=== PATIENT | female | born 1995 | race Caucasian/White ===

== ENCOUNTER 2021-02-22 23:28 | Inpatient (IN) | payer SELFPAY ==
[2021-02-23 00:09] LABS: Urine Blood Trace-intact (Negative); Urine Glucose Negative (Negative); Urine Protein Trace (Negative); Urine Specific Gravity 1.025 (1.005-1.030)
[2021-02-23] MEDS ORDERED: Levofloxacin500mg IV 500 MG/100 ML BAG IV ONE (02:21)
[2021-02-23] MEDS ORDERED: ACETAMINOPHEN 500 MG TAB ONE (02:21)
[2021-02-23 02:52] LABS: Absolute Lymphocytes (CBC) 1.5 K/uL (0.7-4.9); Basophils % 0.1 % (0-1.3); Hematocrit 41.4 % (36.0-45.0); Lymphocytes % 15.9 % (15.3-44.8); RBC Red Blood Cell Count 4.56 M/uL (3.86-4.86)
[2021-02-23 02:57] LABS: Albumin 4.3 g/dL (3.4-5.0); Bilirubin Direct 0.2 mg/dL (0-0.2); Bilirubin Total 0.7 mg/dL (0.2-1.0); Potassium 3.9 mmol/L (3.5-5.1); Protein, Total 8.1 g/dL (6.4-8.2)
--- NOTE | 2021-02-23 03:32 | ER ---
Nurse's Notes [facility] Name: Jodee Okeefe Age: 25 yrs Sex: Female : 1995 Arrival Date: 02/22/2021 Time: 23:32 Bed 23 Private MD: Diagnosis: Pyelonephritis acute-Solitary right kidney;Nausea with vomiting, unspecified Presentation: 02/22 23:42 Chief complaint: Patient states: RT FLANK PAIN THAT RADIATES TO RT GROIN SINCE 1300, HX sj1 OF KIDNEY STONES, REPORTS NAUSEA WITHOUT VOMITING. Coronavirus screen: Vaccine status: Patient reports being unvaccinated. Ebola Screen: No symptoms or risks identified at this time. Initial Sepsis Screen: Does the patient meet any 2 criteria? Temp <36.0*C (96.8*F)) or > 38.3*C (100.9*F). No. Patient's initial sepsis screen is negative. Does the patient have a suspected source of infection? No. Patient's initial sepsis screen is negative. Risk Assessment: Do you want to hurt yourself or someone else? Patient reports no desire to harm self or others. Onset of symptoms was February 22, 2021. 23:42 Method Of Arrival: Ambulatory sj1 23:42 Acuity: PAT 3 sj1 Triage Assessment: 23:47 General: Appears in no apparent distress. Behavior is calm, cooperative, appropriate sj1 for age. Pain: Complains of pain in RT FLANK Pain radiates to RT GROIN Quality of pain is described as aching, sharp, shooting, Pain began suddenly. GI: Reports. 23:50 EENT: No deficits noted. Neuro: No deficits noted. Cardiovascular: No deficits noted. sj1 Respiratory: No deficits noted. GI: Reports nausea. : No deficits noted. Derm: No deficits noted. Musculoskeletal: No deficits noted. 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 - Social history:: Smoking status: Patient denies any tobacco usage or history of. Patient/guardian denies using alcohol, street drugs. Screenin:49 Abuse screen: Denies threats or abuse. Denies injuries from another. Nutritional sj1 screening: No deficits noted. Tuberculosis screening: No symptoms or risk factors identified. Fall Risk None identified. Assessment: 02/23 00:30 Pain: Complains of pain in Right lower quadrant that radiates to back. dc2 00:30 Neuro: No deficits noted. Cardiovascular: No deficits noted. Respiratory: No deficits dc2 noted. Breath sounds are clear bilaterally. GI: No deficits noted. Abdomen is non-distended, obese. : Reports urinary frequency, since 2 days ago. Denies dysuria. Derm: No deficits noted. Musculoskeletal: No deficits noted. Vital Signs: 02/22 23:42 BP 110 / 81; Pulse 98; Resp 16 S; Temp 100.7; Pulse Ox 99% on R/A; Weight 90.72 kg (R); sj1 Height 5 ft. 4 in. (162.56 cm) (R); Pain 10/10; 02/23 00:45 BP 106 / 65; Pulse 89; Resp 18; Pulse Ox 100% ; Pain 9/10; dc2 01:30 BP 106 / 71; Pulse 91; Resp 18; Pulse Ox 100% ; Pain 5/10; dc2 02:30 Temp 99.1; dc2 03:30 BP 106 / 68; Pulse 99; Resp 17; Temp 99.1(O); Pulse Ox 100% ; Pain 0/10; dc2 04:30 BP 98 / 69; Pulse 57; Resp 7; Pulse Ox 100% ; Pain 0/10; dc2 05:30 BP 93 / 64; Pulse 81; Resp 17; Pulse Ox 100% ; Pain 0/10; dc2 06:30 BP 98 / 64; Pulse 89; Resp 17; Pulse Ox 100% ; Pain 0/10; dc2 08:08 BP 102 / 72; Pulse 88; Resp 16; Temp 98.9; Pulse Ox 99% ; ch5 02/22 23:42 Body Mass Index 34.33 (90.72 kg, 162.56 cm) sj1 ED Course: 02/22 23:32 Patient arrived in ED. ja2 23:45 Triage completed. sj1 23:49 Patient has correct armband on for positive identification. sj1 23:49 Arm band placed on. dc2 02/23 00:25 Joselito Giordano MD is Attending Physician. [facility] 00:34 Aracely Mathew RN is Primary Nurse. dc2 01:04 Inserted saline lock: 20 gauge in right antecubital area, using aseptic technique. oe Blood collected. 01:36 Basic Metabolic Panel Sent. dc2 01:36 CBC with Diff Sent. dc2 01:36 Hepatic Function Sent. dc2 01:36 Lipase Sent. dc2 01:[address] via stretcher. dc2 02:13 CT Stone Protocol In Process Unspecified. EDMS 02:44 IV Flushed Converted IV to saline lock on right antecubital area dc2 02:44 No provider procedures requiring assistance completed. dc2 03:30 Wilton Elias is Hospitalizing Provider. [facility] 04:28 Admitting physician to see patient. dc2 04:50 Awaiting bed assignment, Awaiting lab results, Awaiting: Pt instructed that we are dc2 waiting on covid results so bed assignment can be made. Pt verbalizes understanding > Voices no needs at present, call light within reach, In nad. 05:00 Appears to be sleeping. dc2 05:13 SARS-COV-2 RT PCR Sent. dc2 06:30 Appears to be sleeping. Awaiting bed assignment. dc2 06:30 Patient has correct armband on for positive identification. Bed in low position. Call dc2 light in reach. Side rails up X 1. 06:30 disease case manager rn on. Pulse ox on. NIBP on. Pt sleeping with eyes closed, resp even and dc2 unlabored. In nad. Not wakened at this time. 07:04 Report given to YUNIER Galvez. dc2 Administered Medications: 01:36 Drug: NS 0.9% 1000 ml Route: IV; Rate: 1000 ml; Infused Over: 1 hrs; Site: right dc2 antecubital; Delivery: Primary tubing; 45 Follow up: IV Status: Completed infusion; IV Intake: 1000ml dc2 02:00 Drug: Tylenol 1000 mg Route: PO; dc2 02:30 Follow up: Response: Temperature is decreased dc2 02:00 Drug: LevaQUIN (levofloxacin) 500 mg Volume: 100 ml; Route: IVPB; Rate: 100 ml/hr; dc2 Infused Over: 60 mins; Site: right antecubital; Delivery: Primary tubing; 03:29 Follow up: IV Status: Completed infusion; IV Intake: 100ml dc2 Intake: 01:45 IV: 1000ml; Total: 1000ml. dc2 03:29 IV: 100ml; Total: 1100ml. dc2 Outcome: 02:45 Condition: stable dc2 03:31 Decision to Hospitalize by Provider. [facility] 08:08 Admitted to Med/surg via wheelchair. [facility] 08:08 Condition: stable 08:08 Instructed on the need for admit. 08:19 Patient left the ED. [facility] Signatures: Dispatcher [employer] [place] Dimitrios Keller Maurice, MD MD [facility] Colin Grover RN RN 5 Radha Car Denise, RN RN dc2 Amanda Veloz RN RN sj1 Corrections: (The following items were deleted from the chart) 02/22 23:49 23:45 [facility]x: [facility]; [facility] 23:49 23:45 PMHx: HERNIA; 1 1 23:49 23:45 PMHx: C -SECTION X 2; 1 1 02/23 02:41 02:40 LevaQUIN (levofloxacin) 500 mg 100 ml IVPB at 100 ml/hr in right antecubital over dc2 60 mins 100 ml via Primary tubing dc2 03:57 03:57 CORONAVIRUS+ drawn and sent. dc2 [facility]
--- NOTE | 2021-02-23 03:32 | EDPHYS ---
Physician Documentation [facility] Name: Jodee Okeefe Age: 25 yrs Sex: Female : 1995 Arrival Date: 02/22/2021 Time: 23:32 Bed 23 Private MD: ED Physician Joselito Giordano HPI: 02/23 01:20 This 25 yrs old Female presents to ER via Ambulatory with complaints of PAIN mh7 THE RIGHT SIDE, Nausea. 01:20 The patient complains of pain in the right flank. mh7 01:20 The pain radiates to the abdomen. Onset: The symptoms/episode began/occurred yesterday. mh7 Modifying factors: The symptoms are alleviated by nothing. the symptoms are aggravated by nothing. Associated signs and symptoms: Pertinent positives: urinary frequency, nausea, Pertinent negatives: diarrhea, dizziness, dysuria, fever, headache, hematuria, pain radiating to the lower extremities, vomiting. Severity of pain: At its worst the pain was moderate yesterday, in the emergency department the pain has improved moderately. 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 - Social history:: Smoking status: Patient denies any tobacco usage or history of. Patient/guardian denies using alcohol, street drugs. ROS: 02/23 01:20 Constitutional: Negative for fever, chills, and weight loss, Eyes: Negative for injury, mh7 pain, redness, and discharge, ENT: Negative for injury, pain, and discharge, Neck: Negative for injury, pain, and swelling, Cardiovascular: Negative for chest pain, palpitations, and edema, Respiratory: Negative for shortness of breath, cough, wheezing, and pleuritic chest pain, MS/Extremity: Negative for injury and deformity, Skin: Negative for injury, rash, and discoloration, Neuro: Negative for headache, weakness, numbness, tingling, and seizure, Psych: Negative for depression, anxiety, suicide ideation, homicidal ideation, and hallucinations, Allergy/Immunology: Negative for hives, rash, and allergies, Endocrine: Negative for neck swelling, polydipsia, polyuria, polyphagia, and marked weight changes, Hematologic/Lymphatic: Negative for swollen nodes, abnormal bleeding, and unusual bruising. Exam: 01:20 Constitutional: This is a well developed, well nourished patient who is awake, alert, mh7 and in no acute distress. Head/Face: Normocephalic, atraumatic. Eyes: Pupils equal round and reactive to light, extra-ocular motions intact. Lids and lashes normal. Conjunctiva and sclera are non-icteric and not injected. Cornea within normal limits. Periorbital areas with no swelling, redness, or edema. Neck: Trachea midline, no thyromegaly or masses palpated, and no cervical lymphadenopathy. Supple, full range of motion without nuchal rigidity, or vertebral point tenderness. No Meningismus. Chest/axilla: Normal chest wall appearance and motion. Nontender with no deformity. No lesions are appreciated. Cardiovascular: Regular rate and rhythm with a normal S1 and S2. No gallops, murmurs, or rubs. Normal PMI, no JVD. No pulse deficits. Respiratory: Lungs have equal breath sounds bilaterally, clear to auscultation and percussion. No rales, rhonchi or wheezes noted. No increased work of breathing, no retractions or nasal flaring. 01:20 Skin: Warm, dry with normal turgor. Normal color with no rashes, no lesions, and no evidence of cellulitis. MS/ Extremity: Pulses equal, no cyanosis. Neurovascular intact. Full, normal range of motion. Neuro: Awake and alert, GCS 15, oriented to person, place, time, and situation. Cranial nerves II-XII grossly intact. Motor strength 5/5 in all extremities. Sensory grossly intact. Cerebellar exam normal. Normal gait. Psych: Awake, alert, with orientation to person, place and time. Behavior, mood, and affect are within normal limits. 01:20 Abdomen/GI: Inspection: abdomen appears normal, Bowel sounds: normal, in all quadrants, Palpation: mild abdominal tenderness, in the suprapubic area and right lower quadrant, mass, is not appreciated, rebound tenderness, is not appreciated, voluntary guarding, is not appreciated, involuntary guarding, is not appreciated, no appreciated organomegaly, Rectal exam: the exam is deferred, because of patient request, Indicators: McBurney's point is not tender, Lew's sign is negative, Rovsing's sign is negative, Obturator sign is negative, Psoas sign is negative, Liver: no appreciated palpable abnormalities, Hernia: not appreciated. 01:20 Back: normal spinal alignment noted, CVA tenderness, that is mild, is noted on the right, muscle spasm, is not present. Vital Signs: 02/22 23:42 BP 110 / 81; Pulse 98; Resp 16 S; Temp 100.7; Pulse Ox 99% on R/A; Weight 90.72 kg (R); 1 Height 5 ft. 4 in. (162.56 cm) (R); Pain 10/10; 02/23 00:45 BP 106 / 65; Pulse 89; Resp 18; Pulse Ox 100% ; Pain 9/10; dc2 01:30 BP 106 / 71; Pulse 91; Resp 18; Pulse Ox 100% ; Pain 5/10; dc2 02:30 Temp 99.1; dc2 03:30 BP 106 / 68; Pulse 99; Resp 17; Temp 99.1(O); Pulse Ox 100% ; Pain 0/10; dc2 04:30 BP 98 / 69; Pulse 57; Resp 7; Pulse Ox 100% ; Pain 0/10; dc2 05:30 BP 93 / 64; Pulse 81; Resp 17; Pulse Ox 100% ; Pain 0/10; dc2 06:30 BP 98 / 64; Pulse 89; Resp 17; Pulse Ox 100% ; Pain 0/10; dc2 08:08 BP 102 / 72; Pulse 88; Resp 16; Temp 98.9; Pulse Ox 99% ; ch5 02/22 23:42 Body Mass Index 34.33 (90.72 kg, 162.56 cm) [facility] MDM: 03:29 Differential diagnosis: nephrolithiasis, pyelonephritis, UTI, diverticulitis. Data [facility] reviewed: vital signs, nurses notes, lab test result(s), CBC, electrolytes, urinalysis, UPT: negative radiologic studies, CT scan. Data interpreted: Pulse oximetry: on room air is 100 %. Interpretation: normal. Counseling: I had a detailed discussion with the patient and/or guardian regarding: the historical points, exam findings, and any diagnostic results supporting the discharge/admit diagnosis, lab results, radiology results, the need for further work-up and treatment in the hospital. Response to treatment: the patient's symptoms have mildly improved after treatment. 03:31 Patient medically screened. [facility] 02/23 00:10 Order name: Urine Dipstick-Ancillary; Complete Time: 00:30 [facility] 02/23 00:11 Order name: Urine --Ancillary (enter results); Complete Time: 00:30 [facility] 02/23 01:33 Order name: Basic Metabolic Panel; Complete Time: 03:25 [facility] 02/23 01:33 Order name: CBC with Diff; Complete Time: 03:25 [facility] 02/23 01:33 Order name: Hepatic Function; Complete Time: 03:25 [facility] 02/23 01:33 Order name: Lipase; Complete Time: 03:25 [facility] 02/23 01:33 Order name: CT Stone Protocol [facility] 02/23 01:34 Order name: Urine Microscopic Only [facility] 02/23 01:34 Order name: Urine Culture [facility] 02/23 03:57 Order name: SARS-COV-2 RT PCR [facility] 02/23 00:09 Order name: Urine Dipstick-Ancillary (obtain specimen); Complete Time: 00:09 [facility] 02/23 00:11 Order name: Urine Test (obtain specimen); Complete Time: 00:11 [facility] 02/23 01:33 Order name: IV Saline Lock; Complete Time: 01:36 [facility] 02/23 01:33 Order name: Labs collected and sent; Complete Time: 01:36 [facility] Administered Medications: 01:36 Drug: NS 0.9% 1000 ml Route: IV; Rate: 1000 ml; Infused Over: 1 hrs; Site: right dc2 antecubital; Delivery: Primary tubing; 01:45 Follow up: IV Status: Completed infusion; IV Intake: 1000ml dc2 02:00 Drug: Tylenol 1000 mg Route: PO; dc2 02:30 Follow up: Response: Temperature is decreased dc2 02:00 Drug: LevaQUIN (levofloxacin) 500 mg Volume: 100 ml; Route: IVPB; Rate: 100 ml/hr; dc2 Infused Over: 60 mins; Site: right antecubital; Delivery: Primary tubing; 03:29 Follow up: IV Status: Completed infusion; IV Intake: 100ml dc2 Disposition Summary: 02/23/21 03:31 Hospitalization Ordered Hospitalization Status: Inpatient Admission [facility] Provider: Wilton Elias Location: Telemetry/MedSurg (Inpatient) [facility] Condition: Stable [facility] Problem: new 7 Symptoms: have improved [facility] Bed/Room Type: Standard [facility] Room Assignment: 409(02/23/21 07:43) dw Diagnosis - Pyelonephritis acute - Solitary right kidney [facility] - Nausea with vomiting, unspecified [facility] Forms: - Medication Reconciliation Form [facility] - SBAR form [facility] Signatures: Dispatcher [employer] Merna Hanley RN RN dw Joselito Giordano MD MD [facility] Priyanka, YUNIER Jessica RN dc2 Amanda Veloz RN RN sj1 Corrections: (The following items were deleted from the chart) 02/22 23:49 23:45 PMHx: TOE; [place] [id number] 23:49 23:45 PMHx: HERNIA; [place] [id number] 23:49 23:45 PMHx: C -SECTION X 2; [facility] 02/23 03:57 03:47 CORONAVIRUS+MR.LAB.BRZ ordered. [facility] ED[facility] 07:43 03:31 mh7 dw
[2021-02-23 03:54] LABS: Urine Bacteria >50 /HPF (<20)
--- NOTE | 2021-02-23 04:43 | P.HP ---
Certification for Inpatient Patient admitted to: Observation With expected LOS: <2 Midnights Patient will require the following post-hospital care: None Practitioner: I am a practitioner with admitting privileges, knowledge of patient current condition, hospital course, and medical plan of care. Services: Services provided to patient in accordance with Admission requirements found in Title 42 Section 412.3 of the Code of Federal Regulations Patient History Date of Service: 02/23/21 Reason for admission: pyelonephritis History of Present Illness: Ms. Okeefe is a 25 yo F with unilateral renal agenesis and history of nephrolithiasis who presents with one day of R sided flank pain, nausea, frequency and fever. Denies dysuria, urgency and vomiting. Cr 1.36, GFR 47. Ua positive for 3+ leukocyte esterase, 20-50 WBC and >[address] shows mild right hydroureter and hydronephrosis with mild periureteral fat stranding, can be seen with recently passed right ureteral calculus or may be related to ascending UTI including ureteritis or pyelonephritis. Absent left kidney. Mildly prominent right mesenteric llymph nodes. - Past Medical/Surgical History Diabetic: No -: renal agenesis -: nephrolithiasis -: C section x 2 -: hernia repair -: R toe surgery - Family History Family History: Reviewed- Non-Contributory - Social History Smoking Status: Never smoker Alcohol use: No CD- Drugs: No Caffeine use: No Place of Residence: Home Review of Systems 10-point ROS is otherwise unremarkable General: Fever Eyes: Unremarkable ENT: Unremarkable Respiratory: Unremarkable Cardiovascular: Unremarkable Gastrointestinal: Nausea, Abdominal Pain Genitourinary: Frequency Musculoskeletal: Unremarkable Integumentary: Unremarkable Neurological: Unremarkable Lymphatics: Unremarkable Physical Examination - Physical Exam General: Alert, In no apparent distress HEENT: Atraumatic, PERRLA, Mucous membr. moist/pink, EOMI, Sclerae nonicteric Neck: Supple, 2+ carotid pulse no bruit, No LAD, Without JVD or thyroid abnormality Respiratory: Clear to auscultation bilaterally, Normal air movement Cardiovascular: Regular rate/rhythm, Normal S1 S2 Gastrointestinal: Normal bowel sounds, No tenderness Musculoskeletal: No tenderness Integumentary: No rashes Neurological: Normal gait, Normal speech, Normal strength at 5/5 x4 extr, Normal tone, Normal affect Lymphatics: No axilla or inguinal lymphadenopathy - Studies Laboratory Data (last 24 hrs) 02/23/21 01:42: WBC 9.30, Hgb 14.1, Hct 41.4, Plt Count 227 02/23/21 01:42: Sodium 141, Potassium 3.9, BUN 14, Creatinine 1.36 H, Glucose 93, Total Bilirubin 0.7, AST 30, ALT 67, Alkaline Phosphatase 69, Lipase 130 Assessment and Plan - Problems (Diagnosis) (1) Renal agenesis Current Visit: Yes Status: Chronic (2) Pyelonephritis Current Visit: Yes Status: Acute (3) ESHA (acute kidney injury) Current Visit: Yes Status: Acute - Plan continue IV antibiotics and gentle IVF hydration recheck BMP tylenol PRN for fever urine culture and blood cultures pending DVT ppx Discharge Plan: Home Plan to discharge in: 24 Hours - Advance Directives Does patient have a Living Will: No Does patient have a Durable POA for Healthcare: No - Code Status/Comfort Care Code Status Assessed: Yes (full code ) Critical Care: No Time Spent Managing Pts Care (In Minutes): 70
[2021-02-23 08:32] VITALS: BMI 33.3
[2021-02-23] MEDS ORDERED: ONDANSETRON 4 MG/2 ML VIAL IV PRN (08:47)
[2021-02-23] MEDS: CIPROFLOXACIN 400mg IV 400 MG/200 ML BAG IV SCH (09:45)
[2021-02-23] MEDS: HEPARIN 5000 UNIT/ML 1 ML VIAL SQ SCH ×2 (09:45→17:00)
[2021-02-23] MEDS: NA CHLORIDE 0.9% 1,000 ML IV SCH (09:45)
[2021-02-23 09:46] LABS: Potassium 4.1 mmol/L (3.5-5.1)
[2021-02-23] MEDS: ACETAMINOPHEN 500 MG TAB PO PRN ×3 (09:49→20:44)
--- NOTE | 2021-02-23 13:19 | RAD REPORT ---
EXAM DESCRIPTION: CT - Stone Protocol - 02/23/2021 6:51 am CLINICAL HISTORY: Flank pain;Abd pain COMPARISON: None Available. TECHNIQUE: CT of the abdomen and pelvis without IV contrast. Evaluation of the solid organs and vasc ulature is suboptimal due to lack of IV contrast. This exam was performed according to our department al dose-optimization program, which includes automated exposure control, adjustment of the mA and/or kV according to patient size and/or use of iterative reconstruction technique. FINDINGS: Lung Bases: The visualized lung bases are clear. Bones: No destructive bone lesions identified. Abdomen: Liver: The liver has normal size and density. Gallbladder: No calcified gallstones. Spleen, Pancreas, and Adrenal Glands: The spleen, pancreas, and adrenal glands are unremarkable. Kidneys: The left kidney is not visualized. Mild right hydroureter and hydronephrosis. Mild periurete ral fat stranding. Vasculature: The aorta and IVC have normal caliber and position. Stomach: The stomach and duodenum have normal course. Other: No free intraperitoneal air. Mildly prominent right mesenteric lymph nodes. Pelvis: Bladder: Urinary bladder is unremarkable. Bowel: No dilated loops of large or small bowel. Appendix: Normal appendix. Pelvis: Uterus is not enlarged. IMPRESSION: 1. Mild right hydroureter and hydronephrosis with mild periureteral fat stranding. The se findings could be seen with recently passed right ureteral calculus or may be related to ascending urinary tract infection including ureteritis and/or pyelonephritis. 2. Absent left kidney. 3. Mildly prominent right mesenteric lymph nodes. These findings are nonspecific and may be reactiv e secondary to inflammatory change of the right kidney or could be seen with mesenteric adenitis. Electronically signed by: Colin Pierson 02/23/2021 3:02 AM CDT Due to temporary technical issues with the PACS/Fluency reporting system, reports are being signed by the in house radiologist without review as a courtesy to ensure prompt reporting. The interpreting r adiologist is fully responsible for the content of the report.
[2021-02-23] MEDS ORDERED: HYDROCODONE/APAP 5/325 MG TAB PO PRN (15:06)
--- NOTE | 2021-02-23 15:59 | P.PN ---
Date of Service: 02/23/21 Patient seen and examined. She reports intermittent right flank pain. UA suggested UTI. CT abdomen and pelvis suggesting pyelonephritis. Diagnosis: Acute pyelonephritis Left renal agenesis. Nephrolithiasis. Mild hydronephrosis and hydroureter. Plan: Continue current antibiotic. Follow urine culture. Supportive measures-[place] p.r.n. for pain. Antiemetics as needed. IV hydration.
[2021-02-24] MEDS: HEPARIN 5000 UNIT/ML 1 ML VIAL SQ SCH ×3 (01:03→16:23)
[2021-02-24 04:04] LABS: Absolute Lymphocytes (CBC) 1.7 K/uL (0.7-4.9); Basophils % 0.6 % (0-1.3); Hematocrit 37.8 % (36.0-45.0); Lymphocytes % 23.5 % (15.3-44.8); MPV 8.2 fL (7.6-11.3); RBC Red Blood Cell Count 4.19 M/uL (3.86-4.86)
[2021-02-24 04:35] LABS: Albumin 3.4 g/dL (3.4-5.0); Bilirubin Total 0.9 mg/dL (0.2-1.0); Magnesium 1.9 mg/dL (1.8-2.4); Phosphorus 3.1 mg/dL (2.5-4.9); Potassium 4.1 mmol/L (3.5-5.1); Protein, Total 7.3 g/dL (6.4-8.2); Thyroid Stimulating Hormone 3.01 uIU/mL (0.360-3.740)
[2021-02-24] MEDS: CIPROFLOXACIN 400mg IV 400 MG/200 ML BAG IV SCH (09:00)
[2021-02-24 09:44] VITALS: O2SAT 95
--- NOTE | 2021-02-24 11:22 | P.CNS ---
Date of Consult: 02/24/21 Chief Complaint: pyelonephritis History of Present Illness: The patient is a 20-year-old female with a past medical history and a unilateral renal agenesis and history of nephrolithiasis who presented to the emergency department due to right flank pain, suprapubic pain, nausea, increased urinary frequency, and fever. Patient denying dysuria, urgency or vomiting. Urinalysis grossly positive, urine culture growing gram-negative rods awaiting full culture report. CT abdomen pelvis performed on 02/23 showed mild periureteral fat stranding. Patient placed on ciprofloxacin on 02/23. Patient currently denying nausea/vomiting/diarrhea sessions breast/chest pain. Allergies Penicillins Allergy (Mild, Verified 02/23/21 08:47) Rash - Past Medical/Surgical History Diabetic: No -: renal agenesis -: nephrolithiasis -: C section x 2 -: hernia repair -: R toe surgery - Social History Alcohol use: No CD- Drugs: No Caffeine use: Yes Place of Residence: Home Review of Systems 10-point ROS is otherwise unremarkable Physical Examination Temp Pulse Resp BP Pulse Ox 97.6 F 91 H 18 104/63 98 02/24/21 08:00 02/24/21 08:00 02/24/21 08:00 02/24/21 08:00 02/24/21 08:00 General: Alert, In no apparent distress, Obese HEENT: Atraumatic, Normocephalic Neck: Supple, 2+ carotid pulse no bruit Respiratory: Clear to auscultation bilaterally, Normal air movement Cardiovascular: No edema, Normal pulses Gastrointestinal: Normal bowel sounds, Soft and benign, Non-distended Musculoskeletal: No clubbing, No swelling Integumentary: No rashes, No breakdown Conclusions/Impression: Assessment/plan UTI with possible right-sided pyelonephritis CT scan obtained on 02/23 showed mild right periureteral fat stranding how the patient does have history of kidney stones. Urine culture obtained on 02/23 growing gram-negative rods, awaiting full culture report. The patient empirically placed on ciprofloxacin on 02/23, recommend a 7 day course. Medical management per primary team Thank you for consultation
--- NOTE | 2021-02-24 11:24 | P.DS ---
Admission Date: 02/23/21 Discharge Date: 02/24/21 Disposition: ROUTINE DISCHARGE Discharge Condition: FAIR Reason for Admission: pyelonephritis - Problems (1) ESHA (acute kidney injury) Current Visit: Yes Status: Acute (2) Pyelonephritis Current Visit: Yes Status: Acute (3) Renal agenesis Current Visit: Yes Status: Chronic Brief History of Present Illness: Ms. Okeefe is a 25 yo F with unilateral renal agenesis and history of nephrolithiasis who presented with one day of R sided flank pain, nausea, frequency and fever. She denied dysuria, urgency and vomiting. Cr 1.36, GFR 47. Ua positive for 3+ leukocyte esterase, 20-50 WBC and >[address] showed mild right hydroureter and hydronephrosis with mild periureteral fat stranding, which can be seen with recently passed right ureteral calculus or may be related to ascending UTI including ureteritis or pyelonephritis. Absent left kidney. Mildly prominent right mesenteric lymph nodes. Patient hospitalized for further management. Hospital Course: Patient admitted to the medical floor and treated with IV ciprofloxacin for UTI. Urine culture showed mixed growth. Patient clinically improved with treatment. No stones identified on the CT abdomen. Patient with a history of nephrolithiasis. She might have passed a stone. She denies any pain today, currently asymptomatic. She has responded well to ciprofloxacin. She had a KI which resolved with IV hydration. Liver enzymes mildly elevated. Liver ultrasound showed normal liver and biliary tree. Patient seen by infectious disease. She is discharged with a 1 week oral ciprofloxacin. Patient advised to follow up with a urologist to monitor kidney for hydronephrosis and hydroureter. Referral made to Dr. Creon. Vital Signs/Physical Exam: Temp Pulse Resp BP Pulse Ox 97.6 F 91 H 18 104/63 98 02/24/21 08:00 02/24/21 08:00 02/24/21 08:00 02/24/21 08:00 02/24/21 08:00 General: Alert, In no apparent distress, Oriented x3 HEENT: Mucous membr. moist/pink Neck: JVD not distended Respiratory: Clear to auscultation bilaterally, Normal air movement Cardiovascular: No edema, Regular rate/rhythm Gastrointestinal: Soft and benign, Non-distended, No tenderness Musculoskeletal: No swelling, No erythema Integumentary: No rashes Neurological: Normal strength at 5/5 x4 extr Laboratory Data at Discharge: WBC 7.20 K/uL (4.3-10.9) D 02/24/21 03:38 Hgb 12.9 g/dL (12.0-15.0) 02/24/21 03:38 Hct 37.8 % (36.0-45.0) 02/24/21 03:38 Plt Count 181 K/uL (152-406) D 02/24/21 03:38 Sodium 142 mmol/L (136-145) 02/24/21 03:38 Potassium 4.1 mmol/L (3.5-5.1) 02/24/21 03:38 BUN 9 mg/dL (7-18) 02/24/21 03:38 Creatinine 1.17 mg/dL (0.55-1.3) 02/24/21 03:38 Glucose 113 mg/dL (74-106) H 02/24/21 03:38 Phosphorus 3.1 mg/dL (2.5-4.9) 02/24/21 03:38 Magnesium 1.9 mg/dL (1.8-2.4) 02/24/21 03:38 Total Bilirubin 0.9 mg/dL (0.2-1.0) 02/24/21 03:38 AST 97 U/L (15-37) H 02/24/21 03:38 ALT 143 U/L (12-78) H 02/24/21 03:38 Alkaline Phosphatase 63 U/L (45-117) 02/24/21 03:38 Lipase 130 U/L (73-393) 02/23/21 01:42 Home Medications: Ciprofloxacin HCl [Cipro 500 MG Tablet] 500 mg PO BID #14 tab 02/24/21 New Medications: Ciprofloxacin HCl [Cipro 500 MG Tablet] 500 mg PO BID #14 tab Followup: NONE,NONE [Primary Care Provider] - Beny Ceron [ACTIVE - CAN ADMIT] - 1-2 Weeks Time spent managing pt's care (in minutes): 37
[2021-02-24] MEDS: NA CHLORIDE 0.9% 1,000 ML IV SCH (11:27)
[2021-02-24] MEDS ORDERED: CIPROFLOXACIN HCL 500 MG TAB PO SCH ×2 (11:45→21:00)
[2021-02-24] MEDS: ACETAMINOPHEN 500 MG TAB PO PRN (11:48)
--- NOTE | 2021-02-24 16:07 | RAD REPORT ---
EXAM DESCRIPTION: US - Liver Only - 02/24/2021 3:16 pm CLINICAL HISTORY: Elevated LFT COMPARISON: [facility] Protocol dated 02/23/2021 FINDINGS: No focal liver lesion or intrahepatic biliary dilatation.No evidence of portal vein thromb osis. The liver measures 15.5 cm . Borderline splenomegaly. The spleen measures 13 cm. IMPRESSION: Liver is within normal limits. Borderline splenomegaly.
[2021-02-24 16:30] VITALS: BP 115/73; TEMP 98.4
== END 2021-02-24 17:15 | disposition home or self-care (01) | DRG 689 ==
LOC: ER 23:28 → ERHOLD 02-23 04:04 → 4TH 02-23 08:05 → OBSVTOIN 02-23 13:07
PROVIDERS: ADMIT Internal Medicine; ATTEND Internal Medicine
DX: N10 Acute pyelonephritis (principal); U07.1 COVID-19; Q60.2 Renal agenesis, unspecified; N20.0 Calculus of kidney; N17.9 Acute kidney failure, unspecified; Z88.0 Allergy status to penicillin; Z79.899 Other long term (current) drug therapy
CPT/HCPCS: 36415; 74176; 76377; 76705; 80048; 80053; 80076; 81003; 81015; 81025; 83605; 83690; 83735; 84100; 84145; 84439; 84443; 85025; 87077; 87086; 87088; 87186; 94760; 96365; 99285; G0378; J0744; J1644; J7030; U0003